=== PATIENT | male | born 1990 | race Caucasian/White ===

== ENCOUNTER 2019-09-22 21:50 | Emergency (ER) | payer BC ==
--- NOTE | 2019-09-22 22:28 | EDM.PDOC ---
ED HPI GENERAL MEDICAL PROBLEM - General Chief Complaint: ENT Problem Stated Complaint: NOSE BLEED Time Seen by Provider: 09/22/19 22:08 Source of Information: Reports: Patient, RN Notes Reviewed History Limitations: Reports: No Limitations - History of Present Illness INITIAL COMMENTS - FREE TEXT/NARRATIVE: Patient is a 29-year-old male who presents to the ED with his significant other for the evaluation of a nosebleed. Patient notes that this started about 30 minutes prior to arrival to the ER. He believes that his bleeding from the left nare, and feels like it is running down the back of his throat. Patient has been getting nosebleeds on and off for the last 3 days. He denies any trauma to the area. He denies taking any other blood thinners, but has been taking Excedrin due to a back injury and using an inversion table as well. Patient denies any other hypertension issues that he has, although his blood pressure is mildly elevated at time of triage at 150/86. Patient was not able to get this bleed stopped at home so they come to the ER for management. Left Upper Head Pain Score (Numeric/FACES): 5 - Related Data Allergies Allergy/AdvReac Type Severity Reaction Status Date / Time red dye Allergy Severe Cannot Verified 09/22/19 21:53 Remember Home Meds: Home Meds Acetaminophen/HYDROcodone [[place] 325-5 MG] 1 tab PO Q6H PRN #28 tablet 09/22/19 [Rx] Amoxicillin/Clavulanate K [Augmentin 875-125 MG] 1 tab PO BID #10 tablet 09/22/19 [Rx] Past Medical History Musculoskeletal History: Reports: Back Pain, Chronic Social & Family History - Tobacco Use Smoking Status *Q: Current Every Day Smoker Years of Tobacco use: 10 Packs/Tins Daily: 1 - Caffeine Use Caffeine Use: Reports: None - Alcohol Use Alcohol Use History: Yes Alcohol Use in Last Twelve Months: Yes Alcohol Use Frequency: Socially (has a few beers nightly on the weekends) - Recreational Drug Use Recreational Drug Use: No ED ROS ENT - Review of Systems Review Of Systems: Comprehensive ROS is negative, except as noted in HPI. ED EXAM, ENT - Physical Exam Exam: See Below Exam Limited By: No Limitations General Appearance: Alert, WD/WN, No Apparent Distress Nose: Active Bleeding (Patient has 2 paper towels stuck in both nostrils, both are soaked with bright red blood, patient is actively spitting up blood and blood clots, into an emesis bag. Multiple saturated cloths on the bed with bright red blood noted) Mouth/Throat: Normal Inspection, Normal Gums, Normal Lips, Normal Oropharynx (with bright red blood running down the back of the throat. Pt is actively spitting this up.), Normal Teeth Head: Atraumatic, Normocephalic Respiratory/Chest: No Respiratory Distress, Lungs Clear, Normal Breath Sounds, No Accessory Muscle Use, Chest Non-Tender Cardiovascular: Normal Peripheral Pulses, Regular Rate, Rhythm, No Murmur Extremities: Normal Inspection, Normal Capillary Refill Neurological: Alert, Oriented, Normal Cognition, No Motor/Sensory Deficits Psychiatric: Normal Affect, Normal Mood Skin: Warm, Dry, Intact, Normal Color, No Rash ED ENT PROCEDURES - Epistaxis Procedure Indication: Epistaxis Recent anticoagulants/antiplatlets: No (has been using excederin) Uncontrolled HTN: No Recent septal/nasal surgery: No Site of bleeding: Left Nare, Posterior Clearing of clots: Patient Blew Nose Topical Meds: Topical Cocaine (x 4 repetitions of application with cotton swabs and pressure.) Ice pack to area: Yes Anterior Packing: Inflatable Nasal Tampon (anterior rhino rocket was placed x 5 minutes, with bleeding still noted around the rocket itself.) Posterior packing: Long Inflatable Nasal Tampon (AP rhino rocket placed for 10 minutes with bleeding around the rocket itself. Have tried to place ice pack to the bridge of nose to help as well) Course - Vital Signs Last Recorded V/S: Last Vital Signs Temp 98.6 F 09/22/19 21:56 Pulse 92 09/22/19 21:56 Resp 16 09/22/19 21:56 BP 150/86 H 09/22/19 21:56 Pulse Ox 99 09/22/19 21:56 - Orders/Labs/Meds Meds: Medications Discontinued Medications Generic Name Dose Route Start Last Admin Trade Name Freq PRN Reason Stop Dose Admin Hydrocodone Bitart/Acetaminophen 2 tab 09/22/19 23:27 09/22/19 23:54 [place] 325-5 Mg PO 09/22/19 23:28 2 tab ONETIME ONE Administration Cocaine HCl 1 ml 09/22/19 22:12 09/22/19 23:04 Cocaine Hcl TOP 09/22/19 22:13 4 ml ONETIME ONE Administration - Re-Assessments/Exams Free Text/Narrative Re-Assessment/Exam: 09/22/19 22:56 Patient presents to the ED for his nosebleed I did consult with Dr. Ordaz for management, as it does seem to be a quite a vigorous nosebleed. Did try topical cocaine x4 repetitions, tried anterior Rhino Rocket with little success for 5 minutes. Am now trying anterior posterior Rhino Rocket with ice pack placed to the bridge of the nose, will likely have to consult ENT for further management, as the bleed does not seem to be slowing. 09/22/19 23:11 I was able to talk with Dr. Edmond, the on-call ENT doctor through [facility] in [place], and he does state that the patient should stop taking aspirin or NSAIDs for his back pain and take just Tylenol, he can try to humidify the packs to keep them moist, and he wanted me to warn the patient that he will likely feel stuffy and congested over the next few days, with some slight discomfort. He will see the patient in clinic in roughly 3 to 5 days to take the packing out, did suggest following up on Monday. I will give the patient the clinic number so they can follow-up with him. He does suggest also to pack the right side of the nose, to provide counterpressure, I will see if the patient would like this done. Departure - Departure Time of Disposition: 23:12 Disposition: Home, Self-Care 01 Condition: Good Clinical Impression: Acute posterior epistaxis - Discharge Information *PRESCRIPTION DRUG MONITORING PROGRAM REVIEWED*: Yes *COPY OF PRESCRIPTION DRUG MONITORING REPORT IN PATIENT ANUJA: No Prescriptions: Amoxicillin/Clavulanate K [Augmentin 875-125 MG] 1 tab PO BID #10 tablet Acetaminophen/HYDROcodone [[place] 325-5 MG] 1 tab PO Q6H PRN #28 tablet PRN Reason: Pain Instructions: Nosebleed, [id number] Referrals: PCP,None [Primary Care Provider] - Forms: ED Department Discharge Additional Instructions: You were evaluated in the ER today regarding your left-sided nosebleed. Several attempts and modalities were tried to stop your nosebleed, ultimately you did have to have an anterior posterior Rhino Rocket placed to help relieve the bleeding. The source of your blood is likely from a posterior area on the nose that we just cannot get to in this ER. The Rhino Rocket does seem to be providing enough pressure to stop this bleed. Dr. Edmond, ENT on-call through [facility] in [facility] was called on your behalf, and recommends to stop taking aspirin, Excedrin or any other NSAID like ibuprofen or Aleve, and take Tylenol or acetaminophen only. He believes that the NSAIDs are thinning your blood too much, this is why you had such an exquisite bleed today. He also recommends trying to humidify the air in your home, and to keep the nasal packing moist. He does warn that you will feel quite stuffy/congested over the next few days. You were given a prescription for a strong pain medication, hydrocodone/acetaminophen 5/325mg , please take 1-2 tab every 6 hours as needed for pain not relieved by Tylenol or ibuprofen alone. Please note this medication does contain Tylenol in it, so do not take more than 4000 mg in a 24- hour time span. These medications can be addictive, so please take as few as possible to achieve adequate pain control. These meds can also be quite constipating, recommend that you increase your oral fluid intake and take a stool softener like MiraLAX while taking these medications. Do not drive while taking this medication. You were also started on a prophylactic antibiotic, Augmentin, please take 1 tab 2 times a day until gone, or otherwise told by ENT. These medications were sent to the [place] pharmacy located in the [employer] [facility], you will need to go there, tomorrow Monday morning to obtain these prescriptions and take as prescribed. This Rhino Rocket will have to stay in for a few days, roughly 3-5. You will need to call Dr. Edmond's office at [phone] to obtain an appointment, for sometime this mid week to have the Rhino Rocket taken out, and for reevaluation. Please return to the ER at any time if your symptoms change or worsen. Sepsis Event Note (ED) - Evaluation Sepsis Screening Result: No Definite Risk
[2019-09-22] MEDS ORDERED: Acetaminophen/HYDROcodone 325-5 MG Tab PO ONE (23:27)
== END 2019-09-22 23:40 | disposition home or self-care (01) ==
LOC: JD.ED 21:50
DX: R04.0 Epistaxis (principal); F17.210 Nicotine dependence, cigarettes, uncomplicated; Z91.048 Other nonmedicinal substance allergy status
CPT/HCPCS: 30903; 99283; A9270; 30905; 99282

== ENCOUNTER 2019-09-23 13:12 | Emergency (ER) | payer BC ==
--- NOTE | 2019-09-23 14:04 | EDM.PDOC ---
ED HPI GENERAL MEDICAL PROBLEM - General Chief Complaint: ENT Problem Stated Complaint: NOSE BLEED Time Seen by Provider: 09/23/19 13:40 Source of Information: Reports: Patient, Old Records, RN Notes Reviewed History Limitations: Reports: No Limitations - History of Present Illness INITIAL COMMENTS - FREE TEXT/NARRATIVE: Patient is a 29-year-old male who presents to the ED for his left-sided nosebleed. He was evaluated in the ER last night by myself, and ultimately had to have an anterior posterior Rhino Rocket placed into his left nare for a suspected posterior nosebleed. Patient notes everything went well last night, but at around 11 AM this morning, patient is noticing some mild bleeding, feeling like it is going on the back of his throat, and lightly dripping out of his right nare at this time. The air in the balloon was inflated a little bit more, this did seem to help stop up the bleed once again. Patient is anxious, and his blood pressure is mildly elevated at 166/108 at today's visit. He states that he did take a [place] at noon, and this has provided pain relief. He has been taking all other medications as prescribed. His any other fevers or chills at this time or any other sick like symptoms. Nose Pain Score (Numeric/FACES): 4 - Related Data Allergies Allergy/AdvReac Type Severity Reaction Status Date / Time red dye Allergy Severe Cannot Verified 09/22/19 21:53 Remember Home Meds: Home Meds Acetaminophen/HYDROcodone [[place] 325-5 MG] 1 tab PO Q6H PRN #28 tablet 09/22/19 [Rx] Amoxicillin/Clavulanate K [Augmentin 875-125 MG] 1 tab PO BID #10 tablet 09/22/19 [Rx] Past Medical History - Past Health History Medical/Surgical History: Denies Medical/Surgical History HEENT History: Reports: Epistaxis Musculoskeletal History: Reports: Back Pain, Chronic Social & Family History - Tobacco Use Smoking Status *Q: Current Every Day Smoker Years of Tobacco use: 10 Packs/Tins Daily: 1 - Caffeine Use Caffeine Use: Reports: Tea - Recreational Drug Use Recreational Drug Use: No ED ROS ENT - Review of Systems Review Of Systems: Comprehensive ROS is negative, except as noted in HPI. ED EXAM, ENT - Physical Exam Exam: See Below Exam Limited By: No Limitations General Appearance: Alert, WD/WN, No Apparent Distress, Anxious Nose: Active Bleeding (small amount of blood dripping from right nare, and mild amount of blood down the back of the throat.), Dried Blood (around rim of right nare, no active bleeding to Left nare, A-P rhino rocket is in place and has good inflation.) Mouth/Throat: Normal Inspection, Normal Gums, Normal Lips, Normal Oropharynx (small amount of blood running down posterior pharynx.), Normal Teeth Head: Atraumatic, Normocephalic Respiratory/Chest: No Respiratory Distress, Lungs Clear, Normal Breath Sounds, No Accessory Muscle Use, Chest Non-Tender Cardiovascular: Normal Peripheral Pulses, Regular Rate, Rhythm, No Murmur Neurological: Alert, Oriented, Normal Cognition, No Motor/Sensory Deficits Psychiatric: Normal Affect, Normal Mood, Anxious Skin: Warm, Dry, Intact, Normal Color, No Rash Course - Vital Signs Last Recorded V/S: Last Vital Signs Temp 97.6 F 09/23/19 13:32 Pulse 62 09/23/19 13:32 Resp 20 09/23/19 13:32 BP 166/108 H 09/23/19 13:32 Pulse Ox 100 09/23/19 13:32 - Re-Assessments/Exams Free Text/Narrative Re-Assessment/Exam: 09/23/19 14:03 Patient presents to the ED for evaluation of his nosebleed once again. I did discuss with the patient and his girlfriend that ultimately there is not a lot more we can offer him, and I did suggest transfer to [place] they are okay with this plan at this time. I did talk with Dr. Molina, and he does accept for further management, and the [place] ER at [facility]. Patient will be discharged from our ER, and will be directed to present directly to [place]'s ER for further management. Departure - Departure Time of Disposition: 14:04 Disposition: Home, Self-Care 01 Condition: Good Clinical Impression: Posterior epistaxis - Discharge Information *PRESCRIPTION DRUG MONITORING PROGRAM REVIEWED*: No *COPY OF PRESCRIPTION DRUG MONITORING REPORT IN PATIENT ANUJA: No Additional Instructions: You have been discharged from our ER, but will need to go straight to [facility] in [facility] for further management of your posterior nosebleed. [facility] emergency room is located at [address] in [facility] telephone number is [phone], you can google this and it will take you directly to the ER. Dr. Molina was the doctor I consulted with; he is an ER physician and does accept your care at this time. When you leave here, please do not take a lot of time to go home or do anything else, please try to drive straight to [place] for further management regarding your posterior nosebleed. Recommend you try to keep pressure to the right side of the nostrils on your drive to [place]. Sepsis Event Note (ED) - Evaluation Sepsis Screening Result: No Definite Risk - Focused Exam Vital Signs: Vital Signs Temp Pulse Resp BP Pulse Ox 09/23/19 13:32 97.6 F 62 20 166/108 H 100
== END 2019-09-23 15:00 | disposition home or self-care (01) ==
LOC: JD.ED 13:12
DX: R04.0 Epistaxis (principal); F17.210 Nicotine dependence, cigarettes, uncomplicated; Z91.041 Radiographic dye allergy status
CPT/HCPCS: 99282; 99284